=== PATIENT | male | born 1970 | race Caucasian/White ===

== ENCOUNTER 2016-12-03 17:44 | Emergency (ER) | payer OTHER ==
[~2016-12-03] VITALS: Ht 167.6 cm; Wt 69.0 kg
[2016-12-03 18:00] VITALS: BP 146/99; PULSE 86; RESP 16; TEMP 99.1; O2SAT 97
[2016-12-03] MEDS ORDERED: DIAZ10TA PO (18:12)
[2016-12-03] MEDS ORDERED: SODIUM CHLOR 0.9% 1000 ML INJ 1,000 ML IV SCH (18:32)
--- NOTE | 2016-12-03 18:40 | PD ---
HPI Chief Complaint: Flank/Kidney Pain Time Seen by Provider: 18:27 Travel History International Travel<30 days: No Contact w/Intl Traveler<30days: No Traveled to known affect area: No History of Present Illness HPI Patient is a pleasant 46-year-old male who presents to emergency room with complaints of left-sided flank pain. Patient reports that 2 hours prior to presentation to the emergency room, he began to have increased pain to his left flank. Patient reports that pain has been intermittent in nature but has been associated with nausea and vomiting. Patient denies hematuria, denies dysuria, urinary urgency or frequency. Patient reports the pain has been intermittent in nature and he has never had symptoms of this in the past. Patient denies history of kidney stones in the past. Denies fevers or chills. Denies trauma to his back. No other c/o. PFS Past Medical History Anxiety: Yes ("PANIC ATTACKS") Diabetes: No Diminished Hearing: No Diverticulitis: Yes Tetanus Vaccination: Unknown Past Surgical History Surgical History: No Previous Surgery Social History Alcohol Use: Yes (2-3 TIMES PER WEEK) Tobacco Use: No Substance Use: No (DENIES) Allergies-Medications (Allergen,Severity, Reaction): Coded Allergies: Penicillin (Unverified Allergy, Severe, UNKNOWN, FROM CHILDHOOD, 12/03/16) Reported Meds & Prescriptions Reported Meds & Active Scripts Active Reported Diazepam 10 Mg Tab 10 Mg PO HS PRN Review of Systems General / Constitutional: No: Fever Eyes: No: Visual changes HENT: No: Headaches Cardiovascular: No: Chest Pain or Discomfort Respiratory: No: Shortness of Breath Gastrointestinal: Positive: Nausea, Vomiting, Abdominal Pain Genitourinary: No: Dysuria Musculoskeletal: No: Pain Skin: No Rash Neurologic: No: Weakness Psychiatric: No: Depression Endocrine: No: Polydipsia Hematologic/Lymphatic: No: Easy Bruising Physical Exam Narrative GENERAL: nad, nontoxic SKIN: Warm and dry. HEAD: Atraumatic. Normocephalic. EYES:. No injection or drainage. ENT: No nasal bleeding or discharge. Mucous membranes pink and moist. NECK: Trachea midline. No JVD. CARDIOVASCULAR: Regular rate and rhythm. No murmur appreciated. RESPIRATORY: No accessory muscle use. Clear to auscultation. Breath sounds equal bilaterally. GASTROINTESTINAL: Abdomen soft, non-tender, nondistended. Hepatic and splenic margins not palpable. Patient with left-sided flank pain MUSCULOSKELETAL: No obvious deformities. No clubbing. No cyanosis. No edema. NEUROLOGICAL: Awake and alert. Normal speech. PSYCHIATRIC: Appropriate mood and affect; insight and judgment normal. Data Data Last Documented VS Vital Signs Date Time Temp Pulse Resp B/P Pulse Ox O2 Delivery O2 Flow Rate FiO2 12/03/16 19:08 81 18 133/81 97 Room Air 12/03/16 18:00 99.1 Orders Urinalysis - C+S If Indicated (12/03/16 18:06) Complete Blood Count With Diff (12/03/16 18:32) Comprehensive Metabolic Panel (12/03/16 18:32) Lipase (12/03/16 18:32) Prothrombin Time / Inr (Pt) (12/03/16 18:32) Act Partial Throm Time (Ptt) (12/03/16 18:32) Ct Abd/Pel W/O Iv Contrast (12/03/16 18:32) Iv Access Insert/Monitor (12/03/16 18:32) Ondansetron Inj (Zofran Inj) (12/03/16 18:45) Sodium Chlor 0.9% 1000 Ml Inj (Ns 1000 M (12/03/16 18:32) Sodium Chloride 0.9% Flush (Ns Flush) (12/03/16 18:45) Labs Laboratory Tests Test 12/03/16 12/03/16 18:40 19:30 White Blood Count 7.7 TH/MM3 Red Blood Count 5.08 MIL/MM3 Hemoglobin 16.2 GM/DL Hematocrit 47.1 % Mean Corpuscular Volume 92.7 FL Mean Corpuscular Hemoglobin 31.8 PG Mean Corpuscular Hemoglobin 34.3 % Concent Red Cell Distribution Width 12.6 % Platelet Count 213 TH/MM3 Mean Platelet Volume 8.2 FL Neutrophils (%) (Auto) 79.6 % Lymphocytes (%) (Auto) 13.9 % Monocytes (%) (Auto) 5.3 % Eosinophils (%) (Auto) 0.9 % Basophils (%) (Auto) 0.3 % Neutrophils # (Auto) 6.1 TH/MM3 Lymphocytes # (Auto) 1.1 TH/MM3 Monocytes # (Auto) 0.4 TH/MM3 Eosinophils # (Auto) 0.1 TH/MM3 Basophils # (Auto) 0.0 TH/MM3 CBC Comment DIFF FINAL Differential Comment Prothrombin Time 11.0 SEC Prothromb Time International 1.0 RATIO Ratio Activated Partial 25.9 SEC Thromboplast Time Sodium Level 138 MEQ/L Potassium Level 4.5 MEQ/L Chloride Level 100 MEQ/L Carbon Dioxide Level 28.8 MEQ/L Anion Gap 9 MEQ/L Blood Urea Nitrogen 10 MG/DL Creatinine 0.92 MG/DL Estimat Glomerular Filtration 89 ML/MIN Rate Random Glucose 92 MG/DL Calcium Level 8.2 MG/DL Total Bilirubin 0.4 MG/DL Aspartate Amino Transf 29 U/L (AST/SGOT) Alanine Aminotransferase 34 U/L (ALT/SGPT) Alkaline Phosphatase 59 U/L Total Protein 7.7 GM/DL Albumin 3.9 GM/DL Lipase 132 U/L Urine Collection Type CLEAN CATCH Urine Color YELLOW Urine Turbidity CLEAR Urine pH 5.5 Urine Specific [place] 1.006 Urine Protein NEG mg/dL Urine Glucose (UA) NEG mg/dL Urine Ketones NEG mg/dL Urine Occult Blood NEG Urine Nitrite NEG Urine Bilirubin NEG Urine Leukocyte Esterase NEG Urine Squamous Epithelial 0-5 /hpf Cells Microscopic Urinalysis Comment CULT NOT INDICATED MDM Medical Decision Making Medical Screen Exam Complete: Yes Emergency Medical Condition: Yes Interpretation(s) Vital Signs Date Time Temp Pulse Resp B/P Pulse Ox O2 Delivery O2 Flow Rate FiO2 12/03/16 18:00 99.1 86 16 146/99 97 Differential Diagnosis Nephrolithiasis, pyelonephritis, muscle strain, uti, urethritis Narrative Course Patient is a 46-year-old male who presents to emergency room with complaints of left-sided flank pain. Patient reports that symptoms began acutely 2 hours prior to presentation to the emergency room. Patient reports that symptoms associated with nausea vomiting, reports that symptoms have been intermittent in nature. Patient with no history of kidney stones in the past. Patient comfortable at this time. CBC, BMP, UA as well as CAT scan of abdomen and pelvis without IV contrast ordered for evaluation of possible kidney stone, renal sufficiency, UTI. In the meantime, we'll give patient IV hydration as well as antiemetics. Patient does not request any pain medications at this time, reports that he is currently pain-free. 2023: pt re-evaluated, pt reports that he is feeling comfortable at this time, does not want any medications for pain cbc WBC 7.7 Hemoglobin 16.2 Hematocrit 47.1 Platelets 213 BMP Sodium 138 Chloride 100 Potassium 4.5 Carbon dioxide 28.8 BUN 10 Creatinine 0.92 UA: Negative leuk esterase, negative nitrites, negative blood. CT abdomen and pelvis without IV contrast: No renal stones, thickening of the sigmoid colon with some scattered diverticula. Some degree of diverticulitis cannot be excluded. Significant inflammatory change order an abscess is not seen. 1.4 cm exophytic mass - most likely a cyst. Patient well-appearing on evaluation. Patient with no abdominal pain at this time. Clinically, patient does not appear to have diverticulitis. I did give patient a copy of his CAT scan report, I reviewed all incidental findings. I reviewed all signs and symptoms of when to return to the emergency room. Patient will follow-up with his primary care doctor and bring his CAT scan report to his doctor's office for follow-up and all incidental findings. Patient will return to ER as needed. Diagnosis Primary Impression: Flank pain Additional Impressions: 1.4cm exophytic mass left kidney diverticulosis Patient Instructions: General Instructions Departure Forms: Tests/Procedures, Work Release Enter return to work date: Dec 05, 2016 Additional Instructions: Please return to the emergency room as needed Please return to the emergency room if symptoms return Please follow-up with your primary care doctor Please bring your CAT scan report to doctor's office for follow-up on all studies as well as all findings from today. Med/Other Pt SpecificInfo: Prescription(s) given Scripts Ibuprofen 600 Mg [id number] Mg PO Q6H PRN (Pain/Inflammation) #40 TAB Ref 0 Prov:Princess Bueno DO 12/03/16 Disposition: 01 DISCHARGE HOME Condition: Stable Princess Bueno DO Dec 03, 2016 18:40
[2016-12-03] MEDS ORDERED: ONDANSETRON HCL 4 MG/2 ML VIAL IVP ONE (18:45)
[2016-12-03] MEDS ORDERED: SODIUM CHLORIDE 0.9% FLUSH 5 ML FLUSH IVF PRN (18:45)
[2016-12-03 18:47] LABS: AUTOMATED NEUTROPHIL # 6.1 TH/MM3 (1.8-7.7); BASOPHIL % 0.3 % (0.0-2.0); EOSINOPHIL # 0.1 TH/MM3 (0-0.4); EOSINOPHIL % 0.9 % (0.0-4.0); HEMATOCRIT 47.1 % (39.0-51.0); HEMO FLAGS DIFF FINAL; LYMPH % 13.9 % (9.0-44.0); LYMPHOCYTE # 1.1 TH/MM3 (1.0-4.8); MEAN CELL VOLUME 92.7 FL (80.0-100.0); MEAN CORPUSCULAR HEMOGLOBIN 31.8 PG (27.0-34.0); MEAN CORPUSCULAR HGB CONC 34.3 % (32.0-36.0); MONO % 5.3 % (0.0-8.0); NEUT % 79.6 % (16.0-70.0); PLATELET COUNT 213 TH/MM3 (150-450); RED BLOOD COUNT 5.08 MIL/MM3 (4.50-5.90); RED CELL DISTRIBUTION WIDTH 12.6 % (11.6-17.2); WHITE BLOOD COUNT 7.7 TH/MM3 (4.0-11.0)
[2016-12-03 18:55] LABS: CHLORIDE 100 MEQ/L (98-107); SODIUM (NA) 138 MEQ/L (136-145)
[2016-12-03 18:58] LABS: POTASSIUM 4.5 MEQ/L (3.5-5.1)
[2016-12-03 18:59] LABS: ANION GAP 9 MEQ/L (5-15); APTT (PATIENT) 25.9 SEC (24.3-30.1); BICARBONATE 28.8 MEQ/L (21.0-32.0); BLOOD UREA NITROGEN 10 MG/DL (7-18)
[2016-12-03 19:02] LABS: ALT (GPT) 34 U/L (12-78); AST (GOT) 29 U/L (15-37); GLOMERULAR FILTRATION RATE 89 ML/MIN (>89)
[2016-12-03 19:03] LABS: TOTAL BILIRUBIN ADULT 0.4 MG/DL (0.2-1.0)
[2016-12-03 19:05] LABS: ALKALINE PHOSPHATASE 59 U/L (45-117)
[2016-12-03 19:08] VITALS: BP 133/81; PULSE 81; RESP 18; O2SAT 97
[2016-12-03 20:22] LABS: BLOOD, URINE NEG (NEG); GLUCOSE,URINE NEG (NEG); KETONE, URINE NEG (NEG); NITRITE,URINE NEG (NEG); PH, URINE 5.5 (5.0-8.5)
[2016-12-03 20:31] LABS: METHOD OF COLLECTION CLEAN CATCH; URINE COLOR YELLOW (YELLW/STRAW)
[2016-12-03 20:35] LABS: COMMENT (UR) CULT NOT INDICATED; CULTURE IF INDICATED CULT NOT INDICATED; SQUAMOUS EPITHELIAL CELL URINE 0-5 /hpf (0-5)
--- NOTE | 2016-12-03 20:38 | RADHPO ---
EXAM DATE/TIME: 12/03/2016 20:00 [facility] COMPARISON: No previous studies available for comparison. INDICATIONS: Left flank pain. ORAL CONTRAST: No oral contrast ingested. RADIATION DOSE: 10.34 CTDIvol (mGy) MEDICAL HISTORY: None SURGICAL HISTORY: None. ENCOUNTER: Initial ACUITY: 1 day PAIN SCALE: 5/10 LOCATION: Left flank TECHNIQUE: Volumetric scanning of the abdomen and pelvis was performed. Using automated exposure control and ad justment of the mA and/or kV according to patient size, radiation dose was kept as low as reasonably achievable to obtain optimal diagnostic quality images. FINDINGS: Renal stones are not seen. There is a 1.4 cm exophytic mass at the posterior inferior left kidney. This likely represents a cyst but is nonspecific on this non-contrast CT examination. The visualized portions of the liver, spleen and pancreas are normal for a non-contrast CT examinatio n. The adrenal glands are unremarkable. There is some minimal calcification seen at the aorta. No aneurysm is present. There are calcifications in the pelvis which are not related to the urinary system. There are some s cattered diverticula in the sigmoid colon. There is mild thickening of the sigmoid colon. Significant inflam matory change is not seen. The bony structures are grossly intact. CONCLUSION: 1. No renal stones are seen. 2. Thickening of sigmoid colon with some scattered diverticula. Some degree of diverticulitis canno t be excluded. Significant inflammatory change or an abscess is not seen. 3. Calcifications of pelvis not related to the urinary system. These could be represent phleboliths . 4. A 1.4 cm exophytic mass of the inferior posterior aspect of the left kidney statistically likely representing a cyst. Tone Gold MD on December 03, 2016 at 20:25 Board Certified Radiologist. This report was verified electronically.
[2016-12-03] MEDS ORDERED: IBUP-232 PO (20:52)
[2016-12-03 21:09] VITALS: BP 132/86
== END 2016-12-03 21:10 | disposition home or self-care (01) ==
LOC: PHED 17:44
DX: K57.90 Diverticulosis of intestine, part unspecified, without perforation or abscess without bleeding (principal)
CPT/HCPCS: 74176; 80053; 81001; 83690; 85025; 85610; 85730; 96361; 96374; 99284; J2405; J7030

== ENCOUNTER 2017-06-23 17:38 | Emergency (ER) | payer OTHER ==
[~2017-06-23] VITALS: Ht 165.1 cm; Wt 70.5 kg
[~2017-06-23 17:38] MED LIST: DIAZ10TA PO; IBUP-232 PO
[2017-06-23] MEDS ORDERED: LORazepam 2 MG/ML VIAL IV PUSH ONE (17:45)
[2017-06-23 17:47] VITALS: BP 137/87; PULSE 100; RESP 16; TEMP 99.2; O2SAT 98
--- NOTE | 2017-06-23 17:48 | PD ---
HPI Chief Complaint: epigastric pain Time Seen by Provider: 17:44 Travel History International Travel<30 days: No Contact w/Intl Traveler<30days: No Traveled to known affect area: No History of Present Illness HPI This patient up some burning in his epigastrium. He has long-standing history of anxiety and takes Valium. He became tense and anxious and panicky. He never had any chest pain or pressure or tightness or heaviness. He started to drive to the ER and then on the way here became lightheaded and pulled off the road and called 911. Symptoms severity was moderate. Duration 2 hours. No alleviating factors. PFSH Past Medical History Anxiety: Yes ("PANIC ATTACKS") Diabetes: No Diminished Hearing: No Diverticulitis: Yes Social History Alcohol Use: Yes (2-3 TIMES PER WEEK) Tobacco Use: No Substance Use: No (DENIES) Allergies-Medications (Allergen,Severity, Reaction): Coded Allergies: penicillin G (Unverified Allergy, Severe, UNKNOWN, FROM CHILDHOOD, 06/23/17 ) Reported Meds & Prescriptions Reported Meds & Active Scripts Active Ibuprofen 600 Mg Tab 600 Mg PO Q6H PRN Reported Diazepam 10 Mg Tab 10 Mg PO HS PRN Review of Systems General / Constitutional: No: Fever Eyes: No: Visual changes HENT: Positive: Lightheadedness, No: Headaches Cardiovascular: No: Chest Pain or Discomfort Respiratory: No: Shortness of Breath Gastrointestinal: Positive: Nausea, Abdominal Pain Genitourinary: No: Dysuria Musculoskeletal: No: Pain Skin: No Rash Neurologic: No: Weakness Psychiatric: Positive: Anxiety, No: Depression Endocrine: No: Polydipsia Hematologic/Lymphatic: No: Easy Bruising Physical Exam Narrative GENERAL: Well-nourished, well-developed patient looking anxious and panicky . SKIN: Focused skin assessment reveals no rash and nodules. Skin is Warm and dry. HEAD: Atraumatic. Normocephalic. EYES: Pupils equal and round. No scleral icterus. No injection or drainage. ENT: No nasal bleeding or discharge. Mucous membranes pink and moist. NECK: Trachea midline. No JVD. CARDIOVASCULAR: Regular rate and rhythm. No murmur appreciated. RESPIRATORY: No accessory muscle use. Clear to auscultation. Breath sounds equal bilaterally. GASTROINTESTINAL: Abdomen soft, non-tender, nondistended. Hepatic and splenic margins not palpable. MUSCULOSKELETAL: No obvious deformities. No clubbing. No cyanosis. No edema. NEUROLOGICAL: Awake and alert. No obvious cranial nerve deficits. Motor grossly within normal limits. Normal speech. PSYCHIATRIC: Anxious mood and affect; insight and judgment normal. Data Data Last Documented VS Vital Signs Date Time Temp Pulse Resp B/P (MAP) Pulse Ox O2 Delivery O2 Flow Rate FiO2 06/23/17 17:56 16 06/23/17 17:47 99.2 100 137/87 (104) 98 Orders Orders Adapted Physical Education Specialist / Telemetry [id number] (06/23/17 17:44) Electrocardiogram (06/23/17 ) Iv Access Insert/Monitor (06/23/17 17:44) Complete Blood Count With Diff (06/23/17 17:44) Basic Metabolic Panel (Bmp) (06/23/17 17:44) Lorazepam Inj (Ativan Inj) (06/23/17 17:45) Labs Laboratory Tests Test 06/23/17 18:10 White Blood Count 6.3 TH/MM3 Red Blood Count 5.12 MIL/MM3 Hemoglobin 15.7 GM/DL Hematocrit 46.9 % Mean Corpuscular Volume 91.7 FL Mean Corpuscular Hemoglobin 30.7 PG Mean Corpuscular Hemoglobin Concent 33.5 % Red Cell Distribution Width 12.2 % Platelet Count 227 TH/MM3 Mean Platelet Volume 7.6 FL Neutrophils (%) (Auto) 73.0 % Lymphocytes (%) (Auto) 19.0 % Monocytes (%) (Auto) 6.9 % Eosinophils (%) (Auto) 0.7 % Basophils (%) (Auto) 0.4 % Neutrophils # (Auto) 4.7 TH/MM3 Lymphocytes # (Auto) 1.2 TH/MM3 Monocytes # (Auto) 0.4 TH/MM3 Eosinophils # (Auto) 0.0 TH/MM3 Basophils # (Auto) 0.0 TH/MM3 CBC Comment DIFF FINAL Differential Comment Blood Urea Nitrogen 19 MG/DL Creatinine 1.00 MG/DL Random Glucose 98 MG/DL Calcium Level 8.8 MG/DL Sodium Level 140 MEQ/L Potassium Level 3.8 MEQ/L Chloride Level 107 MEQ/L Carbon Dioxide Level 25.0 MEQ/L Anion Gap 8 MEQ/L Estimat Glomerular Filtration Rate 81 ML/MIN [facility] Medical Decision Making Medical Screen Exam Complete: Yes Emergency Medical Condition: Yes Medical Record Reviewed: Yes Differential Diagnosis Panic attack, anxiety, GERD, ulcer, dyspepsia Narrative Course I have reviewed the patient's electronic medical record. IV placed CBC is normal Metabolic profile is normal Extended cardiac monitoring reveals sinus rhythm without ectopy I reviewed his EKG shows sinus rhythm and no ST elevation or ectopy Patient's exam and vital signs are normal He is very anxious and panicky I think this is driving his symptoms He is neurologically intact without sign of CVA I gave him 1 mg IV Ativan to help calm him On recheck the patient feels much better. I think his symptoms were anxiety driven any stable for outpatient follow-up Diagnosis Primary Impression: Acute epigastric pain Additional Impression: Anxiety attack Additional Instructions: The patient was advised to follow up with their physician and return if they worsen. Med/Other Pt SpecificInfo: Other Disposition: 01 DISCHARGE HOME Condition: Stable David Mccoy MD Jun 23, 2017 17:48
[2017-06-23 18:13] LABS: AUTOMATED NEUTROPHIL # 4.7 TH/MM3 (1.8-7.7); BASOPHIL % 0.4 % (0.0-2.0); EOSINOPHIL % 0.7 % (0.0-4.0); HEMATOCRIT 46.9 % (39.0-51.0); HEMO FLAGS DIFF FINAL; LYMPHOCYTE # 1.2 TH/MM3 (1.0-4.8); MEAN CELL VOLUME 91.7 FL (80.0-100.0); MEAN CORPUSCULAR HEMOGLOBIN 30.7 PG (27.0-34.0); MEAN CORPUSCULAR HGB CONC 33.5 % (32.0-36.0); MONO % 6.9 % (0.0-8.0); PLATELET COUNT 227 TH/MM3 (150-450); RED BLOOD COUNT 5.12 MIL/MM3 (4.50-5.90); RED CELL DISTRIBUTION WIDTH 12.2 % (11.6-17.2); WHITE BLOOD COUNT 6.3 TH/MM3 (4.0-11.0)
[2017-06-23 18:24] LABS: POTASSIUM 3.8 MEQ/L (3.5-5.1)
[2017-06-23 19:01] VITALS: BP 135/93
--- NOTE | 2017-06-24 13:45 | EKG ---
Date Performed: 06/23/2017 Time Performed: 18:00:11 PTAGE: 47 years EKG: Sinus rhythm POSSIBLE LEFT ATRIAL ENLARGEMENT MARKED LEFT AXIS DEVIATION NONSPECIFIC ST ELEVATION ABNORMAL ECG Co mpared to prior tracing no significant change PREVIOUS TRACING : 01/12/2015 21.13 DOCTOR: Greer Finney Interpretating Date/Time 06/24/2017 13:41:08
== END 2017-06-23 19:18 | disposition home or self-care (01) ==
LOC: PHED 17:38
DX: R10.13 Epigastric pain (principal); F41.1 Generalized anxiety disorder
CPT/HCPCS: 80048; 85025; 93005; 96374; 99284; J2060

== ENCOUNTER 2017-10-12 17:44 | Emergency (ER) | payer OTHER ==
[~2017-10-12] VITALS: Ht 167.6 cm; Wt 73.1 kg
[2017-10-12 17:58] VITALS: BP 153/91; PULSE 79; RESP 16; TEMP 98.5; O2SAT 97
[2017-10-12] MEDS ORDERED: AZIT250T3 PO (19:23)
--- NOTE | 2017-10-12 19:23 | PD ---
HPI Chief Complaint: Cold / Flu Symptoms Time Seen by Provider: 18:56 Travel History International Travel<30 days: No Contact w/Intl Traveler<30days: No Traveled to known affect area: No History of Present Illness HPI 47 -year-old male with cough 1 week. Subjective fever. Generalized fatigue. Symptoms started with nasal congestion, sore throat 7 days ago. Now has a productive cough. Symptom severity is moderate. No aggravating or alleviating factors. PFSH Past Medical History Hx Anticoagulant Therapy: No Anxiety: Yes ("PANIC ATTACKS") Diabetes: No Diminished Hearing: No Diverticulitis: Yes Social History Alcohol Use: Yes (2-3 TIMES PER WEEK, mix drinks or beer) Tobacco Use: No (quit 7 yrs ago) Substance Use: No (DENIES) Allergies-Medications (Allergen,Severity, Reaction): Coded Allergies: penicillin G (Unverified Allergy, Severe, UNKNOWN, FROM CHILDHOOD, ) Reported Meds & Prescriptions Reported Meds & Active Scripts Active Ibuprofen 600 Mg Tab 600 Mg PO Q6H PRN Reported Diazepam 10 Mg Tab 10 Mg PO HS PRN Review of Systems Except as stated in HPI: all other systems reviewed are Neg Physical Exam Narrative GENERAL: Alert well-appearing male. SKIN: Warm and dry. HEAD: Normocephalic. EYES: No scleral icterus. No injection or drainage. NECK: Supple, trachea midline. No JVD or lymphadenopathy. CARDIOVASCULAR: Regular rate and rhythm without murmurs, gallops, or rubs. RESPIRATORY: Breath sounds equal bilaterally. No accessory muscle use. GASTROINTESTINAL: Abdomen soft, non-tender, nondistended. MUSCULOSKELETAL: No cyanosis, or edema. BACK: Nontender without obvious deformity. No CVA tenderness. Data Data Last Documented VS Vital Signs Date Time Temp Pulse Resp B/P (MAP) Pulse Ox O2 Delivery O2 Flow Rate FiO2 10/12/17 17:58 98.5 79 16 153/91 (111) 97 MDM Medical Decision Making Medical Screen Exam Complete: Yes Emergency Medical Condition: Yes Differential Diagnosis Influenza, bronchitis, pneumonia Narrative Course 47 -year-old male here with cough 1 week. He is reporting colored sputum. Diagnosis Primary Impression: Bronchitis Referrals: [facility] Additional Instructions: Tylenol or ibuprofen as needed for pain and fever. Stay hydrated by drinking plenty of fluid. Take [id number] cough and cold medicine as needed for cough. Scripts Azithromycin (Azithromycin) 250 Mg Tab 250 MG PO DIRECTED for Infection, #6 TAB 0 Refills Take 2 tabs (500 mg) on day 1 then 1 tab daily x 4 days. Prov: Michelle Hurley 10/12/17 Disposition: 01 DISCHARGE HOME Condition: Stable Michelle Hurley Oct 12, 2017 19:23
== END 2017-10-12 19:33 | disposition home or self-care (01) ==
LOC: PHED 17:44 → PHEFT 19:33
DX: J40 Bronchitis, not specified as acute or chronic (principal); F41.0 Panic disorder [episodic paroxysmal anxiety]; Z72.89 Other problems related to lifestyle
CPT/HCPCS: 99283

== ENCOUNTER 2017-10-27 19:10 | Observation (INO) | payer OTHER ==
[~2017-10-27] VITALS: Ht 167.6 cm; Wt 69.9 kg
[2017-10-27 19:10] VITALS: BP 135/82; PULSE 84; RESP 16; TEMP 98.4; O2SAT 96
[~2017-10-27 19:10] MED LIST changes: +AZIT250T3 PO
[2017-10-27] MEDS ORDERED: ASPIRIN 81 MG CHEW TAB PO ONE (19:30)
[2017-10-27] MEDS ORDERED: SODIUM CHLORIDE 0.9% FLUSH 10 ML FLUSH IVF PRN (19:30)
--- NOTE | 2017-10-27 19:31 | PD ---
HPI Chief Complaint: Chest Pain Time Seen by Provider: 19:23 Travel History International Travel<30 days: No Contact w/Intl Traveler<30days: No Traveled to known affect area: No History of Present Illness HPI 47-year-old male with history of anxiety brought in by ambulance because he states he felt as though he may been having a heart attack. He reports he was driving when he began to experience severe substernal chest pain that radiated to his left neck and shoulder. Pain was described as pressure and resolved after he received nitroglycerin as well as aspirin 162mg by EMS. He reports that for the last couple of weeks he has had flulike symptoms with cough which seem to be improving, however he still has a cough which is productive of yellowish sputum. Has not had any fevers. No known history of cardiac disease. No family history of cardiac disease. He is a nonsmoker. No history of DVT or PE. No paresthesias or motor deficits. PFSH Past Medical History Hx Anticoagulant Therapy: No Anxiety: Yes ("PANIC ATTACKS") Diabetes: No Diminished Hearing: No Diverticulitis: Yes ?: Not Social History Alcohol Use: Yes (2-3 TIMES PER WEEK, mix drinks or beer) Tobacco Use: No (quit 7 yrs ago) Substance Use: No (DENIES) Allergies-Medications (Allergen,Severity, Reaction): Coded Allergies: penicillin G (Unverified Allergy, Severe, UNKNOWN, FROM CHILDHOOD, ) Reported Meds & Prescriptions Reported Meds & Active Scripts Active Reported Diazepam 10 Mg Tab 10 Mg PO HS PRN Review of Systems Except as stated in HPI: all other systems reviewed are Neg Physical Exam Narrative GENERAL: Well-developed, well-nourished, comfortable, no apparent distress. SKIN: Focused skin assessment warm/dry. No rash. HEAD: Atraumatic. Normocephalic. EYES: Pupils equal and round. No scleral icterus. No injection or drainage. ENT: Mucous membranes pink and moist. NECK: Trachea midline. No JVD. CARDIOVASCULAR: Regular rate and rhythm. Distal pulses brisk and equal bilaterally. RESPIRATORY: No accessory muscle use. Clear to auscultation. Breath sounds equal bilaterally. GASTROINTESTINAL: Abdomen soft, non-tender, nondistended. MUSCULOSKELETAL: No obvious deformities. No clubbing. No cyanosis. No edema. NEUROLOGICAL: Awake and alert. No obvious cranial nerve deficits. Motor grossly within normal limits. Normal speech. PSYCHIATRIC: Appropriate mood and affect; insight and judgment normal. Data Data Last Documented VS Vital Signs Date Time Temp Pulse Resp B/P (MAP) Pulse Ox O2 Delivery O2 Flow Rate FiO2 10/27/17 20:30 87 16 114/74 (87) 99 Room Air 10/27/17 19:10 98.4 Orders Orders Electrocardiogram (10/27/17 19:27) Ckmb (Isoenzyme) Profile (10/27/17 19:27) Complete Blood Count With Diff (10/27/17 19:27) Comprehensive Metabolic Panel (10/27/17 19:27) Prothrombin Time / Inr (Pt) (10/27/17:27) Act Partial Throm Time (Ptt) (10/27/17:27) Troponin I (10/27/17:27) Chest, Single Ap (10/27/17 19:27) Ecg Monitoring (10/27/17 19:27) Iv Access Insert/Monitor (10/27/17:27) Oximetry (10/27/17 19:27) Aspirin Chew (Aspirin Chew) (10/27/17 19:30) Sodium Chloride 0.9% Flush (Ns Flush) (10/27/17 19:30) Influenzae A/B Antigen (10/27/17 19:27) Labs Laboratory Tests Test 10/27/17 19:20 White Blood Count 6.5 TH/MM3 Red Blood Count 5.06 MIL/MM3 Hemoglobin 15.2 GM/DL Hematocrit 46.7 % Mean Corpuscular Volume 92.2 FL Mean Corpuscular Hemoglobin 30.0 PG Mean Corpuscular Hemoglobin Concent 32.5 % Red Cell Distribution Width 12.4 % Platelet Count 284 TH/MM3 Mean Platelet Volume 7.6 FL Neutrophils (%) (Auto) 73.8 % Lymphocytes (%) (Auto) 17.9 % Monocytes (%) (Auto) 7.5 % Eosinophils (%) (Auto) 0.6 % Basophils (%) (Auto) 0.2 % Neutrophils # (Auto) 4.8 TH/MM3 Lymphocytes # (Auto) 1.2 TH/MM3 Monocytes # (Auto) 0.5 TH/MM3 Eosinophils # (Auto) 0.0 TH/MM3 Basophils # (Auto) 0.0 TH/MM3 CBC Comment DIFF FINAL Differential Comment Prothrombin Time 10.7 SEC Prothromb Time International Ratio 1.1 RATIO Activated Partial Thromboplast Time 22.7 SEC Blood Urea Nitrogen 9 MG/DL Creatinine 1.00 MG/DL Random Glucose 86 MG/DL Total Protein 7.5 GM/DL Albumin 4.0 GM/DL Calcium Level 8.7 MG/DL Alkaline Phosphatase 73 U/L Aspartate Amino Transf (AST/SGOT) 23 U/L Alanine Aminotransferase (ALT/SGPT) 53 U/L Total Bilirubin 0.3 MG/DL Sodium Level 140 MEQ/L Potassium Level 3.5 MEQ/L Chloride Level 105 MEQ/L Carbon Dioxide Level 25.0 MEQ/L Anion Gap 10 MEQ/L Estimat Glomerular Filtration Rate 81 ML/MIN Total Creatine Kinase 61 U/L Troponin I LESS THAN 0.02 NG/ML MDM Medical Decision Making Medical Screen Exam Complete: Yes Emergency Medical Condition: Yes Medical Record Reviewed: Yes Interpretation(s) EKG: Sinus, rate 79, leftward axis, normal intervals, possible left atrial enlargement, no acute ischemic abnormality. Differential Diagnosis ACS, pneumothorax, pericarditis, PE, pneumonia, bronchitis, influenza, anxiety/ panic attack Narrative Course Vital signs are within normal limits. CBC is unremarkable. CMP is unremarkable. Cardiac enzymes are negative. Chest x-ray shows no acute cardiopulmonary disease. Influenza is negative. Patient has not had any chest pain since receiving sublingual nitroglycerin by EMS. He was made aware of all findings. I believe he should be admitted to the chest pain center for further cardiac evaluation. He is amenable to this plan. Case discussed with hospitalist Dr Ventura who will admit the patient to her service. Diagnosis Primary Impression: Chest pain Qualified Codes: R07.9 - Chest pain, unspecified Admitting Information Admitting Physician Requests: Bebeto Napoles MD Oct 27, 2017 19:31
[2017-10-27 19:42] LABS: AUTOMATED NEUTROPHIL # 4.8 TH/MM3 (1.8-7.7); BASOPHIL % 0.2 % (0.0-2.0); EOSINOPHIL % 0.6 % (0.0-4.0); HEMATOCRIT 46.7 % (39.0-51.0); HEMOGLOBIN 15.2 GM/DL (13.0-17.0); LYMPH % 17.9 % (9.0-44.0); LYMPHOCYTE # 1.2 TH/MM3 (1.0-4.8); MEAN CELL VOLUME 92.2 FL (80.0-100.0); MEAN CORPUSCULAR HGB CONC 32.5 % (32.0-36.0); MEAN PLATELET VOLUME 7.6 FL (7.0-11.0); MONO % 7.5 % (0.0-8.0); MONOCYTE # 0.5 TH/MM3 (0-0.9); NEUT % 73.8 % (16.0-70.0); PLATELET COUNT 284 TH/MM3 (150-450); RED BLOOD COUNT 5.06 MIL/MM3 (4.50-5.90); RED CELL DISTRIBUTION WIDTH 12.4 % (11.6-17.2); WHITE BLOOD COUNT 6.5 TH/MM3 (4.0-11.0)
[2017-10-27 19:51] LABS: CHLORIDE 105 MEQ/L (98-107); SODIUM (NA) 140 MEQ/L (136-145)
[2017-10-27 19:54] LABS: CALCIUM 8.7 MG/DL (8.5-10.1)
[2017-10-27 19:55] LABS: BLOOD UREA NITROGEN 9 MG/DL (7-18); GLUCOSE,RANDOM 86 MG/DL (74-106)
[2017-10-27 19:57] LABS: ALT (GPT) 53 U/L (12-78); INTERNATIONAL NORMALIZED RATIO 1.1 RATIO; PROTHROMBIN TIME - PATIENT 10.7 SEC (9.8-11.6)
[2017-10-27 19:58] LABS: AST (GOT) 23 U/L (15-37); GLOMERULAR FILTRATION RATE 81 ML/MIN (>89)
[2017-10-27 19:59] LABS: TOTAL BILIRUBIN ADULT 0.3 MG/DL (0.2-1.0); TOTAL PROTEIN 7.5 GM/DL (6.4-8.2)
[2017-10-27 20:00] VITALS: BP 121/72; PULSE 86; RESP 20; TEMP 97.6; O2SAT 95
[2017-10-27 20:00] LABS: ALKALINE PHOSPHATASE 73 U/L (45-117)
[2017-10-27 20:02] LABS: TROPONIN I LESS THAN 0.02 NG/ML (0.02-0.05)
[2017-10-27 20:30] VITALS: BP 114/74; PULSE 87; RESP 16; O2SAT 99
--- NOTE | 2017-10-27 20:39 | RADRPT ---
EXAM DATE/TIME: 10/27/2017 19:58 [facility] COMPARISON: CHEST SINGLE AP, January 12, 2015, 23:38. INDICATIONS : Chest pain. MEDICAL HISTORY : None. SURGICAL HISTORY : None. ENCOUNTER: Initial ACUITY: 1 day PAIN SCORE: 7/10 LOCATION: Left chest FINDINGS: Single AP view of the chest. The lungs are clear. Cardiomediastinal silhouette within normal limits. No evidence of pleural effusion or pneumothorax. CONCLUSION: No acute cardiopulmonary disease identified. Sergio Stevens MD on October 27, 2017 at 20:37 Board Certified Radiologist. This report was verified electronically.
[2017-10-27] MEDS ORDERED: ACETAMINOPHEN 500 MG CPLT PO PRN (21:00)
[2017-10-27] MEDS ORDERED: ACETAMINOPHEN/HYDROcodone 325 MG/7.5 MG TAB PO PRN (21:00)
[2017-10-27] MEDS ORDERED: ONDANSETRON HCL 4 MG/2 ML VIAL IV PUSH PRN (21:00)
[2017-10-27] MEDS ORDERED: SODIUM CHLORIDE 0.9% FLUSH 10 ML FLUSH IV FLUSH PRN (21:00)
[2017-10-27] MEDS ORDERED: NITROGLYCERIN 0.4 MG SL 25 TABS/BTL SL PRN (21:00)
[2017-10-27] MEDS ORDERED: MORPHINE SULFATE 2 MG/ML INJ IV PUSH PRN (21:15)
[2017-10-27] MEDS: HEPARIN SODIUM - SQ 10,000 UNITS/ML VIAL SQ SCH (21:35)
[2017-10-27 22:17] VITALS: BP 124/87
[2017-10-27] MEDS: SODIUM CHLORIDE 0.9% FLUSH 10 ML FLUSH IV FLUSH SCH (22:18)
[2017-10-28 01:48] LABS: TROPONIN I LESS THAN 0.02 NG/ML (0.02-0.05)
[2017-10-28 04:00] VITALS: BP 127/76; PULSE 53; RESP 20; TEMP 98.7; O2SAT 96
[2017-10-28] MEDS: HEPARIN SODIUM - SQ 10,000 UNITS/ML VIAL SQ SCH (05:18)
[2017-10-28 05:24] LABS: CHLORIDE 106 MEQ/L (98-107); SODIUM (NA) 141 MEQ/L (136-145)
[2017-10-28 05:27] LABS: BICARBONATE 25.7 MEQ/L (21.0-32.0); CALCIUM 8.3 MG/DL (8.5-10.1); GLUCOSE,RANDOM 76 MG/DL (74-106)
[2017-10-28 05:28] LABS: BLOOD UREA NITROGEN 10 MG/DL (7-18)
[2017-10-28 05:31] LABS: CREATININE 0.81 MG/DL (0.60-1.30); GLOMERULAR FILTRATION RATE 103 ML/MIN (>89)
[2017-10-28 05:35] LABS: TROPONIN I LESS THAN 0.02 NG/ML (0.02-0.05)
[2017-10-28 05:40] LABS: WHITE BLOOD COUNT 6.4 TH/MM3 (4.0-11.0)
[2017-10-28 05:41] LABS: AUTOMATED NEUTROPHIL # 3.9 TH/MM3 (1.8-7.7); BASOPHIL % 0.7 % (0.0-2.0); EOSINOPHIL # 0.1 TH/MM3 (0-0.4); EOSINOPHIL % 1.3 % (0.0-4.0); HEMATOCRIT 46.8 % (39.0-51.0); HEMOGLOBIN 14.9 GM/DL (13.0-17.0); LYMPH % 29.6 % (9.0-44.0); LYMPHOCYTE # 1.9 TH/MM3 (1.0-4.8); MEAN CELL VOLUME 93.6 FL (80.0-100.0); MEAN CORPUSCULAR HEMOGLOBIN 29.9 PG (27.0-34.0); MEAN CORPUSCULAR HGB CONC 31.9 % (32.0-36.0); MEAN PLATELET VOLUME 8.3 FL (7.0-11.0); MONO % 7.5 % (0.0-8.0); MONOCYTE # 0.5 TH/MM3 (0-0.9); NEUT % 60.9 % (16.0-70.0); PLATELET COUNT 243 TH/MM3 (150-450); RED CELL DISTRIBUTION WIDTH 12.8 % (11.6-17.2)
[2017-10-28 08:00] VITALS: BP 116/71; PULSE 65; RESP 16; TEMP 97.8; O2SAT 96
--- NOTE | 2017-10-28 08:45 | HHI.HP ---
HPI Service [facility] Primary Care Physician Non-Staff Admission Diagnosis Chest Pain Diagnoses: (1) Chest pain Diagnosis: Principal Chief Complaint: Chest pain Travel History International Travel<30 Days: No Contact w/Intl Traveler <30 Da: No Traveled to Known Affected Are: No History of Present Illness Written by Elizabeth Meyers, acting as scribe for Dr. Rodriguez on 10/28/17 at 08:33. Mr. Bruno is a pleasant 47-year-old male patient who presented to the ED with complaints of chest pain. He does state that he usually has panic attacks almost weekly but this felt different than what he feels during those attacks. Patient states he was driving his car when he experienced a sudden left -sided chest pressure that was constant in nature, rated a 7/10 on pain scale, with associated shortness of breath, diaphoresis, nausea, vomiting and palpitations. Patient denies any recognizable worsening factors. Does state the pain lasted roughly 1 hour and then subsided in the ED when he was given Aspirin and sublingual Nitroglycerin. Patient does admits to recent flulike symptoms including a productive cough. Denies any fevers. At the time of assessment patient denies any chest pain, has completely resolved with no new acute complaints. Denies any prior cardiac workup or prior cardiac stress testing. Review of Systems Constitutional: DENIES: Fever, Chills Eyes: DENIES: Blurred vision, Diplopia Respiratory: COMPLAINS OF: Cough, Sputum production, DENIES: Shortness of breath Cardiovascular: COMPLAINS OF: Chest pain, Palpitations Gastrointestinal: COMPLAINS OF: Nausea, Vomiting, DENIES: Abdominal pain, Bloody stools, Diarrhea Musculoskeletal: DENIES: Joint pain Psychiatric: COMPLAINS OF: Anxiety Except as stated in HPI: all other systems reviewed are Neg Past Family Social History Past Medical History Anxiety with frequent panic attacks. Diverticulitis. Past Surgical History Denies any prior surgeries. Reported Medications Reported Meds & Active Scripts Active Reported Diazepam 10 Mg Tab 10 Mg PO HS PRN Allergies: Coded Allergies: penicillin G (Unverified Allergy, Severe, UNKNOWN, FROM CHILDHOOD, ) Active Ordered Medications Current Medications Medications (Trade) Dose Ordered Sig/Latisha Route Start Time Stop Time Status Last Admin (NS Flush) 2 ml UNSCH PRN IV FLUSH 10/27/17 21:00 (NS Flush) 2 ml BID IV FLUSH 10/27/17 21:00 (Tylenol) 500 mg Q4H PRN PO 10/27/17 21:00 (Kenefic 7.5-325 Mg) 1 tab Q4H PRN PO 10/27/17 21:00 (Morphine Inj) 2 mg Q4H PRN IV PUSH 10/27/17 21:15 (Zofran Inj) 4 mg Q6H PRN IV PUSH 10/27/17 21:00 (Nitrostat Sl) 0.4 mg Q5M PRN SL 10/27/17 21:00 (Aspirin) 325 mg DAILY PO 10/28/17 09:00 (Heparin Inj) 5,000 units Q8H SQ 10/27/17 21:00 10/28/17 05:18 Family History Denies any significant maternal or paternal medical history of cardiovascular disease. Does states his paternal uncle had DM and cardiovascular disease. Social History Denies any current tobacco use. Does admit to quitting cigarettes 10 years ago, prior to this he smoked 1/2 ppd for over 20 years. Does admit to 2-3 alcoholic drinks per week. Does admit to drinking 6-8 alcoholic drinks daily but has quit this for over 1 month. Denies any illicit drug use. Physical Exam Vital Signs Vital Signs Date Time Temp Pulse Resp B/P (MAP) Pulse Ox O2 Delivery O2 Flow Rate FiO2 10/28/17 04:00 98.7 53 20 127/76 (93) 96 10/27/17 22:17 81 18 124/87 (99) 100 10/27/17 20:30 87 16 114/74 (87) 99 Room Air 10/27/17 19:24 84 16 96 Room Air 10/27/17 19:10 98.4 84 16 135/82 (99) 96 Physical Exam GENERAL: This is a well-nourished, well-developed patient, in no apparent distress. SKIN: No rashes, ecchymoses or lesions. Warm and dry. HEAD: Atraumatic. Normocephalic. Pupils equal round and reactive. Extraocular motions intact. No scleral icterus. No injection or drainage. Nose without bleeding. Airway patent. NECK: Trachea midline. No JVD. Supple. CARDIOVASCULAR: Regular rate and rhythm without murmurs, gallops, or rubs. No reproducible chest pain. RESPIRATORY: Clear to auscultation. Breath sounds equal bilaterally. No wheezes , rales, or rhonchi. GASTROINTESTINAL: Abdomen soft, non-tender, nondistended. No guarding. MUSCULOSKELETAL: Extremities without clubbing, cyanosis, or edema. No joint tenderness, effusion, or edema noted. NEUROLOGICAL: Awake and alert. Cranial nerves II through XII intact. Motor and sensory grossly within normal limits. Five out of 5 muscle strength in all muscle groups. Normal speech. Laboratory Laboratory Tests Test 10/27/17 19:20 10/28/17 01:00 10/28/17 04:40 White Blood Count 6.5 6.4 Red Blood Count 5.06 5.00 Hemoglobin 15.2 14.9 Hematocrit 46.7 46.8 Mean Corpuscular Volume 92.2 93.6 Mean Corpuscular Hemoglobin 30.0 29.9 Mean Corpuscular Hemoglobin Concent 32.5 31.9 Red Cell Distribution Width 12.4 12.8 Platelet Count 284 243 Mean Platelet Volume 7.6 8.3 Neutrophils (%) (Auto) 73.8 60.9 Lymphocytes (%) (Auto) 17.9 29.6 Monocytes (%) (Auto) 7.5 7.5 Eosinophils (%) (Auto) 0.6 1.3 Basophils (%) (Auto) 0.2 0.7 Neutrophils # (Auto) 4.8 3.9 Lymphocytes # (Auto) 1.2 1.9 Monocytes # (Auto) 0.5 0.5 Eosinophils # (Auto) 0.0 0.1 Basophils # (Auto) 0.0 0.0 CBC Comment DIFF FINAL DIFF FINAL Differential Comment Prothrombin Time 10.7 Prothromb Time International Ratio 1.1 Activated Partial Thromboplast Time 22.7 Blood Urea Nitrogen 9 10 Creatinine 1.00 0.81 Random Glucose 86 76 Total Protein 7.5 Albumin 4.0 Calcium Level 8.7 8.3 Alkaline Phosphatase 73 Aspartate Amino Transf (AST/SGOT) 23 Alanine Aminotransferase (ALT/SGPT) 53 Total Bilirubin 0.3 Sodium Level 140 141 Potassium Level 3.5 3.5 Chloride Level 105 106 Carbon Dioxide Level 25.0 25.7 Anion Gap 10 9 Estimat Glomerular Filtration Rate 81 103 Total Creatine Kinase 61 38 47 Troponin I LESS THAN 0.02 LESS THAN 0.02 LESS THAN 0.02 Date/Time Source Procedure Growth Status 10/27/17 19:20 Nasal Washing Influenza Types A,B Antigen (GUADALUPE) - Final NEGATIVE FOR FLU A AND B ANTIGEN.... Complete Result Diagram: 10/28/1743910/28/17439 Imaging Last Impressions Chest X-Ray 10/27/171926 Signed Impressions: Service Date/Time: Friday, October 27, 2017 19:58 - CONCLUSION: No acute cardiopulmonary disease identified. Sergio Stevens MD Septic Shock Reassessment Septic shock perfusion: reassessment completed Caprini VTE Risk Assessment Caprini VTE Risk Assessment: No/Low Risk (score <= 1) Caprini Risk Assessment Model Point Value = 1 Point Value = 2 Point Value = 3 Point Value = 5 Age 41-60 Minor surgery BMI > 25 kg/m2 Swollen legs Varicose veins or History of unexplained or recurrent spontaneous Oral contraceptives or hormone replacement Sepsis (< 1 month) Serious lung disease, including pneumonia (< 1 month) Abnormal pulmonary function Acute myocardial infarction Congestive heart failure (< 1 month) History of inflammatory bowel disease Medical patient at bed rest Age 61-74 Arthroscopic surgery Major open surgery (> 45 min) Laparoscopic surgery (> 45 min) Malignancy Confined to bed (> 72 hours) Immobilizing plaster cast Central venous access Age >= 75 History of VTE Family history of VTE Factor V Leiden Prothrombin [id number] Lupus anticoagulant Anticardiolipin antibodies Elevated serum homocysteine Heparin-induced thrombocytopenia Other congenital or acquired thrombophilia Stroke (< 1 month) Elective arthroplasty Hip, pelvis, or leg fracture Acute spinal cord injury (< 1 month) Prophylaxis Regimen Total Risk Factor Score Risk Level Prophylaxis Regimen 0-1 Low Early ambulation 2 Moderate Order ONE of the following: *Sequential Compression Device (SCD) *Heparin 5000 units SQ BID 3-4 Higher Order ONE of the following medications: *Heparin 5000 units SQ TID *Enoxaparin/Lovenox 40 mg SQ daily (WT < 150 kg, CrCl > 30 mL/min) *Enoxaparin/Lovenox 30 mg SQ daily (WT < 150 kg, CrCl > 10-29 mL/min) *Enoxaparin/Lovenox 30 mg SQ BID (WT < 150 kg, CrCl > 30 mL/min) AND/OR *Sequential Compression Device (SCD) 5 or more Highest Order ONE of the following medications: *Heparin 5000 units SQ TID (Preferred with Epidurals) *Enoxaparin/Lovenox 40 mg SQ daily (WT < 150 kg, CrCl > 30 mL/min) *Enoxaparin/Lovenox 30 mg SQ daily (WT < 150 kg, CrCl > 10-29 mL/min) *Enoxaparin/Lovenox 30 mg SQ BID (WT < 150 kg, CrCl > 30 mL/min) AND *Sequential Compression Device (SCD) Assessment and Plan Problem List: (1) Chest pain ICD Code: R07.9 - Chest pain, unspecified Status: Acute Plan: Patient has been admitted to the chest pain center. Serial EKGs and serial troponins have been ordered for ruling out ACS purposes. Troponins are flat. EKG reviewed showing NSR with controlled HR, no changes in ST segment to indicate any ischemia. Chest pain has completely resolved most likely related to his chronic anxiety disorder. Although with his risk factors of prior smoking and family history he will undergo a cardiac treadmill stress test. If negative, patient will be discharged home and encouraged to follow up with his PCP in the outpatient setting. He will also be encouraged to return to the ED if symptoms reoccur or worsen. Was given Aspirin and SL nitroglycerin in the ED. Started on Aspirin daily for now. Kenefic PO and Morphine IV available PRN for pain per pain scale. Nitroglycerin SL also available PRN. Will keep NPO until after performance of stress test. CXR reviewed showing no acite cardiopulmonary disease identified. Patient is stable at this time and agreeable to the plan. Assessment and Plan Patient underwent a cardiac treadmill stress test, results were reviewed by Dr. Starr, nutrition worker insurance commissioner. No ischemia was present. Results were relayed to patient. Advised that if chest pain or discomfort reoccurs to come back to ED for further evaluation. Patient is advised to follow up with PCP upon discharge. Patient is stable at this time and agreeable to the plan. This note was transcribed by BERA Badillo . I, Dr. Vania Rodriguez personally performed the history, physical exam, and medical decision making; and confirmed the accuracy of the information in the transcribed note. Authenticated by Dr. Vania Rodriguez on 10/28/17 at 08:33. Problem Qualifiers (1) Chest pain: Qualified Codes: R07.9 - Chest pain, unspecified Elizabeth Meyers Oct 28, 2017 08:45 Vania Rodriguez MD Oct 28, 2017 11:59
[2017-10-28] MEDS ORDERED: ASPIRIN 325 MG TAB PO SCH (09:00)
[2017-10-28] MEDS: SODIUM CHLORIDE 0.9% FLUSH 10 ML FLUSH IV FLUSH SCH (10:00)
[2017-10-28 12:00] VITALS: BP 117/68; PULSE 68; RESP 16; TEMP 97.3; O2SAT 97
--- NOTE | 2017-10-28 12:51 | EKG ---
Date Performed: 10/28/2017 Time Performed: 03:58:53 PTAGE: 47 years EKG: Sinus rhythm WITH SINUS ARRHYTHMIA NORMAL ECG Since PREVIOUS TRACING , no significant change noted DOCTOR: Sandie Starr Interpretating Date/Time 10/28/2017 12:50:55
--- NOTE | 2017-10-28 12:55 | EKG ---
Date Performed: 10/28/2017 Time Performed: 00:33:31 PTAGE: 47 years EKG: Sinus rhythm NORMAL ECG Since PREVIOUS TRACING , no significant change noted PREVIOUS TRACIN10/27/2017 19.15 DOCTOR: Sandie Starr Interpretating Date/Time 10/28/2017 12:54:25
--- NOTE | 2017-10-28 12:57 | EKG ---
Date Performed: 10/27/2017 Time Performed: 19:15:27 PTAGE: 47 years EKG: Sinus rhythm POSSIBLE LEFT ATRIAL ENLARGEMENT MARKED LEFT AXIS DEVIATION ABNORMAL ECG Since PREVIOUS TRACING , no significant change noted PREVIOUS TRACIN06/23/2017 18.00 DOCTOR: Sandie Starr Interpretating Date/Time 10/28/2017 12:55:24
--- NOTE | 2017-10-28 13:05 | HHI.DCPOC ---
Discharge Care Plan Goals to Promote Your Health * To prevent worsening of your condition and complications * To maintain your health at the optimal level Directions to Meet Your Goals Take your medications as prescribed Follow your dietary instruction Follow activity as directed Keep your appointments as scheduled Take your immunizations and boosters as scheduled If your symptoms worsen call your PCP, if no PCP go to Urgent Care Center or Emergency Room Smoking is Dangerous to Your Health. Avoid second hand smoke Call the 24-hour hour crisis hotline for domestic abuse at Vania Rodriguez MD Oct 28, 2017 13:05
== END 2017-10-28 16:08 | disposition home or self-care (01) ==
LOC: PHED 19:10 → PHEDA 20:58 → PH3B 22:12
PROVIDERS: ADMIT Hospitalist; ATTEND Hospitalist
DX: R07.9 Chest pain, unspecified (principal); F41.9 Anxiety disorder, unspecified; R05 Cough; K57.92 Diverticulitis of intestine, part unspecified, without perforation or abscess without bleeding; Z87.891 Personal history of nicotine dependence; R61 Generalized hyperhidrosis; R11.2 Nausea with vomiting, unspecified; R06.02 Shortness of breath; R00.2 Palpitations; R94.31 Abnormal electrocardiogram [ECG] [EKG]
CPT/HCPCS: 71010; 80048; 80053; 82550; 84484; 85025; 85610; 85730; 87804; 93005; 93017; 96372; 99285; G0378; J1644